=== PATIENT | male | born 1970 | race Caucasian/White ===

== ENCOUNTER → 2017-09-18 | Outpatient (CLI) | payer OTHER ==
[~2017-09-18] MED LIST: ACULAR 3 ML3 M1 OP; ATIVAN0.5 MG PO; FLEXERIL10 MG PO; HYDROCODONE BIT1 T11 PO; KEFLEX500 MG PO; MEDROL DOSEPAK4 MG PO; NAPROSYN500 MG PO; NEXIUM20 M1 PO; TOBREX OPHTH S2.5 ML OPH
--- NOTE | ~2017-09-18 | ST ---
[place], [place] EXERCISE STRESS TEST REPORT [id number] UNIT #: [id number] ROOM: DOCTOR: THEO DE LEON MD BIRTHDATE: [birth year] DOS: 09/18/2017 STRESS EKG. REFERRING PHYSICIAN: Mirta Aparicio CNP INDICATION: Central chest pain. The patient underwent standard Zachary protocol treadmill stress EKG. The patient's baseline EKG is normal sinus with no ischemic changes. Baseline heart rate 71, blood pressure 116/76. The patient's peak heart rate was 168, which represents 97% of maximum predicted with a peak blood pressure of 174/86. Exercised 12 minutes on the treadmill with no EKG changes, no arrhythmias, and no chest pain. The patient's Bennett Treadmill score is 12. SUMMARY OF FINDINGS: 1. Normal exercise stress EKG. 2. High level of exertion. 3. Bennett Treadmill score 12 portending a low risk prognosis. THEO DE LEON MD CM:STRESS:EXERCISE STRESS TEST REPORT [id number] THEO DE LEON MD
== END | disposition home or self-care (01) ==
LOC: CARD 01:44
DX: R07.9 Chest pain, unspecified (principal); R42 Dizziness and giddiness; R00.2 Palpitations; R94.31 Abnormal electrocardiogram [ECG] [EKG]

== ENCOUNTER 2021-03-03 22:19 | Emergency (ER) | payer BC ==
[~2021-03-03] VITALS: Ht 172.7 cm; Wt 68.0 kg
[2021-03-03 22:55] LABS: BASO % 0.5 % (0.0-1.0); EOS # 0.1 10*3/uL (0.0-0.4); EOS % 1.5 % (1.0-4.0); HEMATOCRIT 41.1 % (42.0-52.0); LYMPH # 2.4 10*3/uL (1.3-4.4); LYMPH % 38.8 % (27.0-41.0); MEAN CELL VOLUME 90.5 fl (80.0-94.0); MEAN CORPUSCULAR HGB 31.1 pg (27.0-31.0); MEAN CORPUSCULAR HGB CONC 34.3 g/dl (33.0-37.0); MEAN PLATELET VOLUME 11.5 fl (9.6-12.3); MONO # 0.6 10*3/uL (0.1-1.0); MONO % 10.5 % (3.0-9.0); NEUT # 2.9 10*3/uL (2.3-7.9); NEUT % 48.2 % (47.0-73.0); PLATELET COUNT AUTOMATED 192 10*3/uL (130-400); RED BLOOD COUNT 4.54 10*6/uL (4.50-5.90); RED CELL DISTRI WIDTH 13.2 % (0-14.5); WHITE BLOOD COUNT 6.1 10*3/uL (4.8-10.8)
[2021-03-03 23:11] LABS: ALBUMIN 3.8 gm/dl (3.1-4.5); ALKALINE PHOSPHATASE 80 U/L (45-117); BUN 20 mg/dl (7-24); CHLORIDE 108 mmol/L (98-107); CREATININE 1.53 mg/dL (0.70-1.30); POTASSIUM 3.8 mmol/L (3.5-5.1); SGOT/AST 18 IU/L (3-35); SGPT/ALT 20 U/L (12-78); SODIUM 137 mmol/L (136-145); TOTAL PROTEIN 7.1 gm/dL (6.4-8.2)
[2021-03-03 23:16] LABS: TROPONIN I < 0.015 ng/ml (<0.045)
== END 2021-03-04 03:18 | disposition home or self-care (01) ==
LOC: ED 22:19
PROVIDERS: Emergency Medicine
DX: R00.2 Palpitations (principal); R20.0 Anesthesia of skin; Z79.899 Other long term (current) drug therapy

== ENCOUNTER 2021-06-18 05:30 | Emergency (ER) | payer BC ==
[~2021-06-18] VITALS: Ht 172.7 cm; Wt 68.0 kg
[2021-06-18 06:12] LABS: ALBUMIN 3.7 gm/dl (3.1-4.5); ALKALINE PHOSPHATASE 55 U/L (45-117); BUN 18 mg/dl (7-24); CHLORIDE 108 mmol/L (98-107); CREATININE 0.94 mg/dL (0.70-1.30); POTASSIUM 4.2 mmol/L (3.5-5.1); SGOT/AST 19 IU/L (3-35); SGPT/ALT 25 U/L (12-78); SODIUM 140 mmol/L (136-145); TOTAL PROTEIN 6.9 gm/dL (6.4-8.2)
[2021-06-18 06:13] LABS: TROPONIN I < 0.015 ng/ml (<0.045)
[2021-06-18 06:15] LABS: BASO % 0.6 % (0.0-1.0); EOS # 0.1 10*3/uL (0.0-0.4); EOS % 1.5 % (1.0-4.0); HEMATOCRIT 42.9 % (42.0-52.0); LYMPH # 1.6 10*3/uL (1.3-4.4); LYMPH % 33.5 % (27.0-41.0); MEAN CELL VOLUME 91.3 fl (80.0-94.0); MEAN CORPUSCULAR HGB 31.1 pg (27.0-31.0); MONO # 0.7 10*3/uL (0.1-1.0); MONO % 14.3 % (3.0-9.0); NEUT # 2.3 10*3/uL (2.3-7.9); NEUT % 49.7 % (47.0-73.0); PLATELET COUNT AUTOMATED 162 10*3/uL (130-400); RED CELL DISTRI WIDTH 12.6 % (0-14.5); WHITE BLOOD COUNT 4.6 10*3/uL (4.8-10.8)
== END 2021-06-18 06:37 | disposition home or self-care (01) ==
LOC: ED 05:30
PROVIDERS: Internal Medicine
DX: R07.9 Chest pain, unspecified (principal); Z79.899 Other long term (current) drug therapy

== ENCOUNTER 2024-08-28 22:52 | Emergency (ER) | payer BC ==
[~2024-08-28] VITALS: Ht 177.8 cm; Wt 77.1 kg
== END 2024-08-29 00:24 | disposition home or self-care (01) ==
LOC: ED 22:52
DX: R00.2 Palpitations (principal); R20.2 Paresthesia of skin; K21.9 Gastro-esophageal reflux disease without esophagitis

== ENCOUNTER 2025-08-15 09:52 | Emergency (ER) | payer BC ==
[~2025-08-15] VITALS: Ht 170.1 cm; Wt 68.0 kg
[2025-08-15 10:28] LABS: BASO # 0.1 10*3/uL (0.0-0.1); BASO % 0.8 % (0.0-1.0); EOS # 0.1 10*3/uL (0.0-0.4); EOS % 1.1 % (1.0-4.0); MEAN CELL VOLUME 91.0 fl (80.0-94.0); MEAN CORPUSCULAR HGB 30.8 pg (27.0-31.0); MEAN PLATELET VOLUME 11.2 fl (9.6-12.3); MONO # 0.5 10*3/uL (0.1-1.0); MONO % 8.1 % (3.0-9.0); NEUT # 4.0 10*3/uL (2.3-7.9); NEUT % 62.3 % (47.0-73.0); NUCLEATED RED BLOOD CELL 0.0 % (0.0-0.0); NUCLEATED RED BLOOD CELL 0.0 10*3/uL (0.0-0.0); PLATELET COUNT AUTOMATED 203 10*3/uL (130-400); RED CELL DISTRI WIDTH 13.1 % (0-14.5)
[2025-08-15 10:47] LABS: BUN 15 mg/dl (9-23)
== END 2025-08-15 13:29 | disposition home or self-care (01) ==
LOC: ED 09:52
PROVIDERS: Student in an Organized Health Care Education/Training Program
DX: R07.89 Other chest pain (principal); K21.9 Gastro-esophageal reflux disease without esophagitis